=== PATIENT | female | born 1970 | race Caucasian/White ===

== ENCOUNTER 2019-02-06 06:08 | Inpatient (IN) | payer OTHER ==
[2019-02-05 09:28] VITALS: BMI 23.6
[2019-02-06] MEDS ORDERED: DEXAMETHASONE SOD PHOSPHATE/PF 10 MG/ML SDV ONE (07:04)
[2019-02-06] MEDS ORDERED: BUPIVACAINE HCL/PF 0.5% (5 MG/ML) 30 ML VIAL IJ ONE (07:04)
[2019-02-06] MEDS ORDERED: BUPIVACAINE LIPOSOME/PF (EXPAREL) 266 MG/20 ML VIAL ONE (07:11)
[2019-02-06] MEDS ORDERED: MIDAZOLAM HCL 2 MG/2 ML SINGLE DOSE VIAL ONE ×2 (07:22)
[2019-02-06] MEDS ORDERED: PROPOFOL 20 ML ONE (07:31)
[2019-02-06] MEDS ORDERED: KETAMINE HCL 200 MG/20 ML VIAL ONE (07:31)
[2019-02-06] MEDS ORDERED: ROCURONIUM BROMIDE 50 MG/5 ML SYRINGE ONE (07:31)
[2019-02-06] MEDS ORDERED: SUCCINYLCHOLINE CHLORIDE 200 MG/10 ML SYRINGE ONE (07:31)
[2019-02-06] MEDS ORDERED: SODIUM CHLORIDE 0.9% P/F 10 ML VIAL IJ ONE (07:33)
[2019-02-06] MEDS ORDERED: LIDOCAINE HCL/PF 2% SDV 5ML VIAL ONE ×2 (07:33→07:36)
[2019-02-06] MEDS ORDERED: ceFAZolin SODIUM 1 GM VIAL ONE ×2 (07:33→18:28)
[2019-02-06] MEDS ORDERED: KETOROLAC TROMETHAMINE 30 MG/1 ML VIAL ONE (07:33)
[2019-02-06] MEDS ORDERED: DEXAMETHASONE SOD PHOSPHATE 4 MG/1 ML VIAL ONE (07:33)
[2019-02-06] MEDS ORDERED: MAGNESIUM SULF 50% (8.12 MEQ/2 ML-1 GM VIAL) ONE (07:36)
[2019-02-06] MEDS ORDERED: DEXMEDETOMIDINE HCL 200 MCG/2 ML IVPB ONE (07:37)
--- NOTE | 2019-02-06 07:41 | HP ---
History & Physical Update - Physical Physical: No Change - Assessment Assessment: No Change - Plan Plan: No Change (H&P reviwed , no changes , for supracervical abdominal hysterectomy, bilateral salpingectomy)
[2019-02-06] MEDS ORDERED: ceFAZolin 2 GRAM PREMIX BAG IVPB ONE (07:45)
[2019-02-06] MEDS ORDERED: ceFAZolin SODIUM 1 GM VIAL IVPB ONE (08:14)
[2019-02-06] MEDS ORDERED: GLYCOPYRROLATE 0.2 MG/1 ML VIAL ONE (09:02)
[2019-02-06] MEDS ORDERED: NEOSTIGMINE METHYLSULFATE 0.5 MG/ML - 10 ML MDV ONE (09:02)
[2019-02-06] MEDS ORDERED: IBUPROFEN 600 MG TABLET (FP) PO PRN (09:45)
[2019-02-06] MEDS ORDERED: oxyCODONE HCL 5 MG TABLET PO PRN (09:45)
[2019-02-06] MEDS ORDERED: ONDANSETRON 4 MG/2 ML VIAL IVPUSH PRN (09:45)
[2019-02-06] MEDS ORDERED: IBUPROFEN 800 MG/8 ML IJ IVPB PRN (09:45)
[2019-02-06] MEDS ORDERED: ACETAMINOPHEN 325 MG TABLET (FP) PO PRN (10:04)
--- NOTE | 2019-02-06 10:08 | OP ---
Operative Note - Note: Operative Date: 02/06/19 Pre-Operative Diagnosis: pelvic pain, fibroid uterus Operation: supracervical abdominal hysterectomy , bilateral salpingectomy Findings: large uterus, multiple myomas Surgeon: Olu Butts Front Counter Attendant: Vinod Iyer Anesthesia: General Specimens Removed: uterus, both tubes Estimated Blood Loss (mls): 100 Drains & Tubes with Location: squires Blood Volume Replaced (mls): 0 Operative Report Dictated: Yes
[2019-02-06] MEDS: LACTATED RINGERS SOLUTION 1,000 ML IV SCH (11:28)
[2019-02-06] MEDS: oxyCODONE HCL 5 MG TABLET PO PRN (12:16)
[2019-02-06] MEDS: ELECTROLYTE-148 SOLN 1,000 ML IV SCH (15:00)
[2019-02-06] MEDS ORDERED: DEXTROSE 5%-WATER - 50 ML IVPB ONE (18:29)
[2019-02-06] MEDS: CEFAZOLIN 1 GM in DEXTROSE 5%-WATER - 50 ML IVPB SCH (19:00)
[2019-02-06] MEDS: DEXTROSE 5%-LACTATED RINGERS 1,000 ML IV SCH (19:49)
[2019-02-07] MEDS ORDERED: DEXTROSE 5%-WATER - 50 ML IVPB ONE ×2 (01:15→09:50)
[2019-02-07] MEDS ORDERED: ceFAZolin SODIUM 1 GM VIAL ONE ×2 (01:15→09:50)
[2019-02-07] MEDS: CEFAZOLIN 1 GM in DEXTROSE 5%-WATER - 50 ML IVPB SCH ×2 (01:45→09:53)
[2019-02-07] MEDS: oxyCODONE HCL 5 MG TABLET PO PRN (04:32)
[2019-02-07] MEDS ORDERED: ENOXAPARIN NA (PORCINE) 40 MG/0.4 ML DISP.SYRIN SQ SCH (10:00)
[2019-02-07 11:16] LABS: HEMATOCRIT 41.1 % (32.4-45.2); HEMOGLOBIN 13.8 GM/dL (10.7-15.3); MCH 32.5 pg (25.7-33.7); MCHC 33.5 g/dl (32.0-36.0); MEAN PLT VOLUME 8.3 fl (7.5-11.1); PLATELET COUNT 229 K/MM3 (134-434); RBC 4.24 M/mm3 (3.60-5.2); RDW 13.1 % (11.6-15.6); WHITE BLOOD COUNT 7.9 K/mm3 (4.0-10.0)
[2019-02-07 11:52] LABS: BLOOD UREA NITROGEN 13.5 mg/dL (7-18); CALCIUM 8.7 mg/dL (8.5-10.1); CREATININE 0.8 mg/dL (0.55-1.3)
--- NOTE | 2019-02-07 12:03 | OP ---
DATE OF OPERATION: 02/06/2019 PREOPERATIVE DIAGNOSES: Pelvic pain, large fibroid uterus. POSTOPERATIVE DIAGNOSES: Pelvic pain, large fibroid uterus. PROCEDURE: Supracervical abdominal hysterectomy and bilateral salpingectomy. SURGEON: Olu Butts MD FLOOR SANDER: Vinod Iyer MD ESTIMATED BLOOD LOSS: 100 mL. ANESTHESIA: General. DESCRIPTION OF OPERATIVE PROCEDURE: Patient was taken to the operating room. Under adequate general anesthesia, abdomen and perineum were prepped and draped. A Pfannenstiel abdominal skin incision was made. Abdominal wall was cut layer by layer. Anterior peritoneum was exposed and incised. Upon entering the abdominal cavity, upper abdomen was checked, was normal. Bowels were packed away. There was a large fibroid uterus with multiple myomas. Both ovaries appeared to be normal. No cul-de-sac adhesions. Bladder was normal. Then, both cornual regions of the uterus were grasped with 2 straight Linn, and the uterus was delivered. Then, the round ligaments were identified bilaterally, grasped with the bipolar LigaSure cautery, cauterized, and cut. Then, anterior leaf of broad ligament was dissected, and bladder was pushed down. Then, the right tube was grasped with a Brent clamp and along the mesosalpinx with bipolar cautery. The tubes were removed bilaterally. Then, a hole was made into the broad ligament, and utero-ovarian ligament was grasped with a HUMI clamp, cut, and the clamp replaced with first 0 Vicryl ties and then with 0 Vicryl suture bilaterally. Then, the bladder was further pushed down. Uterine artery was identified, clamped with a Shanice clamp, cut, and the clamp replaced with 0 Vicryl suture bilaterally. Paracervical area was clamped with Shanice clamp, cut, and the clamp replaced with 0 Vicryl suture bilaterally. Then, the specimen was removed above the cervix. Cervix was sutured with interrupted suture of 0 Biosyn, and hemostasis was established. Pelvic cavity several times irrigated. No active bleeding was seen. Then, the reperitonealization of the pelvic floor was done with a continuous suture of the 2-0 Vicryl. Again, all the pedicles were checked. No bleeding. All the lap pads, sponge, and instrument count were correct. Peritoneum was closed with 0 Vicryl continuous suture. Muscles were brought together with interrupted suture of 0 Vicryl. Fascia was closed with 0 Vicryl continuous suture, subcutaneous fat with interrupted suture of 0 Vicryl, and the skin was closed with 3-0 Vicryl continuous subcuticular suture. Patient tolerated procedure well, left the OR in good condition. Jael [id number]
[2019-02-07] MEDS: ELECTROLYTE-148 SOLN 1,000 ML IV SCH (14:03)
[2019-02-07] MEDS: LACTATED RINGERS SOLUTION 1,000 ML IV SCH (14:04)
[2019-02-07] MEDS: DEXTROSE 5%-LACTATED RINGERS 1,000 ML IV SCH (14:05)
[2019-02-07 14:37] VITALS: TEMP 98.3
[2019-02-07 14:50] VITALS: BP 104/68; PULSE 78
--- NOTE | 2019-02-07 15:53 | PATH ---
Surgical Pathology Report Patient Name: MECHELLE NORRIS [facility]. Rec. #: [id number] /Age/Gender: 1970 (Age: 48) / F Account: [id number] Location: [facility] MED/SURG Taken: 02/06/2019 Received: 02/06/2019 Reported: 02/07/2019 Physicians: Olu Butts M.D. Specimen(s) Received UTERUS, BILATERAL FALLOPIAN TUBES Clinical History Fibroid uterus Final Diagnosis UTERUS, BILATERAL FALLOPIAN TUBES, ABDOMINAL SUPRACERVICAL HYSTERECTOMY AND BILATERAL SALPINGECTOMY: 677 G UTERUS. LEIOMYOMA(TA) WITH FOCAL DEGENERATIVE CHANGES,SUBSEROSAL, INTRAMURAL, AND SUBMUCOSAL. PROLIFERATIVE ENDOMETRIUM. PORTION OF ENDOCERVIX WITHOUT SIGNIFICANT PATHOLOGIC FINDINGS. BILATERAL FALLOPIAN TUBES WITHOUT SIGNIFICANT PATHOLOGIC FINDINGS (INCLUDING FULL LUMINAL PORTION AND FIMBRIATED END). Electronically Signed Kendra Riggs M.D. Gross Description Received in formalin labeled "uterus and bilateral fallopian tubes," is a 677 g supracervically amputated uterus with bilateral attached fallopian tubes. The specimen measures 12 cm from anterior to posterior, 11 cm from left to right and 10 cm from anterior to posterior. The serosa is jimenez-pink with abundant bulging subserosal nodules. The endometrial cavity measures 5.7 cm in length and 2.3 cm from cornu to cornu. There is a 2.6 x 1.5 cm bulging, polypoid lesion on the anterior endometrium. The remaining endometrium is jimenez-red and averages 0.1 cm in thickness. The myometrium displays abundant intramural nodules, measuring up to 7 cm in greatest dimension. The cut surface of the nodules is jimenez and rubbery with whorled architecture. No areas of hemorrhage or necrosis are identified. The remaining myometrium is jimenez-pink and measures up to 6 cm in thickness. The left fimbriated fallopian tube measures 4 centimeters in length. The outer surface is quinones purple and smooth. Sectioning reveals an unremarkable lumen. The right fimbriated fallopian tube measures 4.5 cm in length. The outer surface is quinones purple and smooth. Sectioning reveals an unremarkable lumen. Traffic Director sections are submitted in 20 cassettes as follows: 1-cervical stump margin of resection; 2-anterior endomyometrium; 5-9-cflgjlth endometrial polypoid lesion sequentially submitted from superior to inferior; 9-08-otmsrdprf endomyometrium; 09-35-zrqqgfwvyi nodules; 34-42-zvsgcqj intramural nodule; 37-84-potytqmhin intramural nodules; 17-left fallopian tube fimbria; 18-cross sections of left fallopian tube; 19-right fallopian tube fimbria; 20-cross sections of right fallopian tube. 02/06/201902/06/2019
== END 2019-02-07 15:13 | disposition home or self-care (01) | DRG 743 ==
LOC: JSAMEDAYSX 06:08 → J8W 11:15
PROVIDERS: ADMIT Obstetrics & Gynecology; ATTEND Obstetrics & Gynecology
PROC: 0UT70ZZ Resection of Bilateral Fallopian Tubes, Open Approach (ICD-10-PCS; 2019-02-06)
PROC: 0UT90ZL Resection of Uterus, Supracervical, Open Approach (ICD-10-PCS; principal; 2019-02-06 08:00)
DX: D25.9 Leiomyoma of uterus, unspecified (principal); R10.2 Pelvic and perineal pain
CPT/HCPCS: 36415; 80048; 84702; 85027; 86850; 86900; 86901; 94760

== ENCOUNTER 2019-05-30 13:30 | Emergency (ER) | payer OTHER ==
[2019-05-30 13:41] VITALS: TEMP 97.7; BMI 23.6
--- NOTE | 2019-05-30 13:42 | PDOC ---
Rapid Medical Evaluation Time Seen by Provider: 05/30/19 13:38 Medical Evaluation: Allergies Allergy/AdvReac Type Severity Reaction Status Date / Time No Known Drug Allergies Allergy Verified 02/05/19 09:36 05/30/19 13:38 Pt c/o: low abd pain and distention x 1 week, moving bowels, no fever, no urinary complaints, no travel administrator on brief exam: rlq/periumbilical tenderness, vss Pt ordered for: urine, labs, iv Pt to proceed to the ED Discharge Disposition - Diagnosis Abdominal pain - Referrals - Patient Instructions - Post Discharge Activity
[2019-05-30] MEDS ORDERED: SODIUM CHLORIDE 0.9% 500 ML INFUS.BAG IV ONE (14:38)
--- NOTE | 2019-05-30 14:39 | PDOC ---
History of Present Illness - General Chief Complaint: Pain Stated Complaint: SENT BY DOC Time Seen by Provider: 05/30/19 13:38 History Source: Patient Exam Limitations: No Limitations - History of Present Illness Initial Comments: Carolyn Parra is a 49 yo F w a pmh of hysterectomy and salpingectomy (Still has ovaries), Uveitis, cataracts presents to the [facility] er sent in by Dr. Montgomery for an abdominal CT scan because she has been experiencing increasing lower abdominal girth and pain over the course of the past 2 weeks. She reports that 2 weeks prior she had no pain, but her abdomen has steadily been expanding in size and she has occasional RLQ abdominal pain. She states now when she runs on the treadmill her lower abdomen experiences a significant amount of pain. Patient states she has been having night sweats at night. Also endorses mild watery diarrhea without blood this morning. - Last bowel movement this morning, was watery and described as mild diarrhea. LMP: August 2018. States she is currently experiencing tiffany-menopausal symptoms. Denies fevers, chills, weight loss, nausea, vomiting, anorexia, loss of appetite. Denies vaginal discharge, denies bloody discharge, denies dysuria, frequency, urgency. PCP: Dr. Montgomery Opthalmologist: Dr. Salmeron in [place] PSH: bilateral salpingectomy, hysterectomy (Patient still has ovaries), catarct surgery Allergies: NKA, NKDA Social Hx: Denies smoking, drinking, or other substance abuse Past History - Past Medical History Allergies/Adverse Reactions: Allergies Allergy/AdvReac Type Severity Reaction Status Date / Time No Known Drug Allergies Allergy Verified 05/30/19 13:41 Home Medications: Ambulatory Orders Mycophenolate Mofetil [Cellcept] 500 mg PO BID 02/05/19 acetaZOLAMIDE [Diamox -] 250 mg PO BID 02/05/19 Ibuprofen [Motrin -] 600 mg PO QID #28 tablet 02/06/19 Anemia: No Asthma: No Cancer: No Cardiac Disorders: No CVA: No COPD: No CHF: No Dementia: No Diabetes: No GI Disorders: No Disorders: No HTN: No Hypercholesterolemia: No Liver Disease: No Seizures: No Thyroid Disease: No - Psycho Social/Smoking Cessation Hx Smoking History: Never smoked Have you smoked in the past 12 months: No Information on smoking cessation initiated: No Hx Alcohol Use: No Drug/Substance Use Hx: No Substance Use Type: Alcohol Hx Substance Use Treatment: No Review of Systems - Review of Systems Able to Perform ROS?: Yes Comments:: CONSTITUTIONAL: Present: Night sweats. Absent: fever, no chills, no fatigue EYES: Absent: visual changes ENT: Absent: ear pain, no sore throat CARDIOVASCULAR: Absent: chest pain, no palpitations RESPIRATORY: Absent: cough, no SOB GI: Present: Abdominal pain, diarrhea Absent: no nausea, no vomiting, no constipation GENITOURINARY: Absent: dysuria, no frequency, no hematuria MUSKULOSKELETAL: Absent: back pain, no arthralgia, no myalgia SKIN: Absent: rash NEURO: Absent: headache *Physical Exam - Vital Signs Last Vital Signs Temp Pulse Resp BP Pulse Ox 97.7 F 69 18 131/89 98 05/30/19 13:39 05/30/19 13:39 05/30/19 13:39 05/30/19 13:39 05/30/19 13:39 - Physical Exam GENERAL: Well-appearing, well-nourished. No apparent distress. HEENT: Normocephalic, atraumatic. PERRL, EOM intact. CARDIOVASCULAR: Normal S1, S2. Regular rate and rhythm. PULMONARY: No evidence of respiratory distress. Lungs clear to auscultation bilaterally. No wheezing, rales or rhonchi. ABDOMEN: Normal bowel sounds. Abdomen is soft, non-distended, non-tender. No flank tenderness. There is overall generalized abdominal girth. No hard or tender massess appreciated. EXTREMITIES: Normal ROM in all four extremities. No gross deformities. SKIN: Warm, dry. No rash NEUROLOGICAL: No focal neurological deficits. ED Treatment Course - LABORATORY CBC & Chemistry Diagram: 05/30/19 14:55 05/30/19 14:55 Medical Decision Making - Medical Decision Making Carolyn Parra is a 49 yo F w a pmh of hysterectomy and salpingectomy (Still has ovaries), Uveitis, cataracts presents to the [facility] er sent in by Dr. Montgomery for an abdominal CT scan because she has been experiencing increasing lower abdominal girth and pain over the course of the past 2 weeks. She reports that 2 weeks prior she had no pain, but her abdomen has steadily been expanding in size and she has occasional RLQ abdominal pain. She states now when she runs on the treadmill her lower abdomen experiences a significant amount of pain. Patient states she has been having night sweats at night. Also endorses mild watery diarrhea without blood this morning. - Last bowel movement this morning, was watery and described as mild diarrhea. LMP: August 2018. States she is currently experiencing tiffany-menopausal symptoms. Denies fevers, chills, weight loss, nausea, vomiting, anorexia, loss of appetite. Denies vaginal discharge, denies bloody discharge, denies dysuria, frequency, urgency. Vital Signs Temp Pulse Resp BP Pulse Ox 97.7 F 69 18 131/89 98 05/30/19 13:39 05/30/19 13:39 05/30/19 13:39 05/30/19 13:39 05/30/19 13:39 DDx IBNLT: UTI, pylo, appendcitis, ovarian cancer, electrolyte/metabolic disturbance, anemia Plan: Labs, urine, POCUS, CTAP, re-assess POCUS: No intra-abdominal Free fluid. Normal peristalsing bowel, no bowel segments larger than 3 cm. Labs: Cbc normal. Coags unremarkable. CMP unremarkable. Urine: Clean without signs of infection CTAP: Unremarkable Re-assessment: Patient persistently asymptomatic despite 5 hours of ED observation Disposition: Home with PCP fu - CT results printed and given to patient Discharge - Discharge Information Problems reviewed: Yes Clinical Impression/Diagnosis: Abdominal pain Qualifiers: Abdominal location: lower abdomen, unspecified Qualified Code(s): R10.30 - Lower abdominal pain, unspecified Condition: Stable Disposition: HOME - Admission No - Follow up/Referral Referrals: Marcelino Montgomery RES [Primary Care Provider] - - Patient Discharge Instructions Patient Printed Discharge Instructions: Acute Abdominal Pain Additional Instructions: You came into the ER with abdominal discomfort. We looked at your blood, urine, did a cat scan, and a bedisde ultrasound and found no abnormal results. Please follow up about this with your primary doctor in the next 3 to 5 days. Come back to the ER immediately with any new or worsening concerns. Thank you for coming to the [facility] ER. We hope you feel better soon! Print Language: CITIZEN OF [place] - Post Discharge Activity
--- NOTE | 2019-05-30 14:51 | PDOC ---
Attending Attestation - Resident Resident Name: Arian Ricks - ED Attending Attestation I have performed the following: I have examined & evaluated the patient, The case was reviewed & discussed with the resident, I agree w/resident's findings & plan, Exceptions are as noted - HPI HPI: 05/30/19 18:50 49y M hx of fibroids sp hysterectomy/salpingetctomy, uveitis, presents with lower abdominal pain for the past several weeks. Patient states that she has been having intermittent low abdominal pain that seems to worsen intermittently sometimes with sitting up. The patient does endorse that her lower abdomen seems a little more swollen than usual . the patient denies any fever, chills, nausea, vomiting, chest pain, shortness of breath, back pain, weight loss, change in her appetite. There is no change to her pain with food intake. Social history patient denies smoking, recreational drug use surgical hx: hysterectomy/salpingetctomy General: no acute distress, well appearing Abd: soft mild lower abd tenderness R>L, no rebound/guarding, no cva tenderness - Physicial Exam PE: 05/30/19 18:54 ee above - Medical Decision Making 05/30/19 18:54 pots labs reviewd and unremarkable UA negative CT without acute pathology pt feeing better pain may be msk in nature - pt ntoes the pain worsens with sitting up and b/l hip flexion will recommend tylenol/motrin, rest PMD fu return precautions were dsicussed Heart Score/ECG Review - ECG Impressions Comment:: 05/30/19 18:55 Twelve-lead EKG was performed and reviewed by me. There is normal sinus rhythm with a normal rate. Rate of 70 The axis is normal. The intervals are normal. There is normal R wave progression There are no ST or T wave abnormalities. Impression: Normal twelve-lead EKG Discharge - Discharge Information Clinical Impression/Diagnosis: Abdominal pain Qualifiers: Abdominal location: lower abdomen, unspecified Qualified Code(s): R10.30 - Lower abdominal pain, unspecified Condition: Stable Disposition: HOME - Follow up/Referral Referrals: Marcelino Montgomery, G[place]O [Primary Care Provider] - - Patient Discharge Instructions Patient Printed Discharge Instructions: Acute Abdominal Pain Additional Instructions: You came into the ER with abdominal discomfort. We looked at your blood, urine, did a cat scan, and a bedisde ultrasound and found no abnormal results. Please follow up about this with your primary doctor in the next 3 to 5 days. Come back to the ER immediately with any new or worsening concerns. Thank you for coming to the [facility] ER. We hope you feel better soon! Print Language: DOMINICAN - Post Discharge Activity
[2019-05-30 15:18] LABS: BASO % 0.7 % (0-2.0); EOS % 1.2 % (0-4.5); HEMATOCRIT 44.9 % (32.4-45.2); HEMOGLOBIN 14.8 GM/dL (10.7-15.3); LYMPH % 39.1 % (8-40); MCH 32.2 pg (25.7-33.7); MEAN CELL VOLUME 97.6 fl (80-96); MEAN PLT VOLUME 8.5 fl (7.5-11.1); MONO % 7.8 % (3.8-10.2); NEUT % 51.2 % (42.8-82.8); PLATELET COUNT 293 K/MM3 (134-434); RDW 13.4 % (11.6-15.6); WHITE BLOOD COUNT 5.5 K/mm3 (4.0-10.0)
[2019-05-30 15:22] LABS: URINE APPEARANCE Clear; URINE BILIRUBIN Negative (NEGATIVE); URINE COLOR Yellow; URINE GLUCOSE (UA) Negative (NEGATIVE); URINE KETONE Negative (NEGATIVE); URINE LEUK ESTERASE Negative (NEGATIVE); URINE NITRITE Negative (NEGATIVE); URINE PROTEIN Negative (NEGATIVE); URINE UROBILINOGEN 0.2 mg/dL (0.2-1.0)
[2019-05-30 15:24] LABS: INR 0.82 (0.83-1.09); PROTHROMBIN TIME (PATIENT) 9.6 SEC (9.7-13.0)
[2019-05-30 15:27] LABS: ACTIVATED PTT 36.5 SECONDS (25.2-36.5)
[2019-05-30 15:44] LABS: ALBUMIN 3.9 g/dl (3.4-5.0); BILIRUBIN,TOTAL 0.2 mg/dL (0.2-1); BLOOD UREA NITROGEN 13.1 mg/dL (7-18); CALCIUM 8.9 mg/dL (8.5-10.1); CREATININE 0.8 mg/dL (0.55-1.3); MAGNESIUM 2.1 mg/dL (1.8-2.4); PHOSPHOROUS 3.4 mg/dL (2.5-4.9); POTASSIUM 3.6 mmol/L (3.5-5.1); TOT PROT 7.4 g/dl (6.4-8.2)
[2019-05-30 19:09] VITALS: BP 117/78; PULSE 72
--- NOTE | 2019-05-31 10:50 | EKG ---
Test Reason : Blood Pressure : / mmHG Vent. Rate : 070 BPM Atrial Rate : 070 BPM P-R Int : 158 ms QRS Dur : 084 ms QT Int : 384 ms P-R-T Axes : 029 013 027 degrees QTc Int : 414 ms NORMAL SINUS RHYTHM POOR R WAVE PROGRESSION NO PREVIOUS ECGS AVAILABLE Confirmed by CATA ARREDONDO MD ([id number]) on 05/31/2019 10:49:31 AM Referred By: Confirmed By:CATA ARREDONDO MD
== END 2019-05-30 19:00 | disposition home or self-care (01) ==
LOC: JER 13:30
DX: R10.30 Lower abdominal pain, unspecified (principal); Z90.710 Acquired absence of both cervix and uterus; Z90.79 Acquired absence of other genital organ(s); Z86.69 Personal history of other diseases of the nervous system and sense organs
CPT/HCPCS: 36415; 74177-TC; 80053; 81003; 82550; 83605; 83690; 83735; 84100; 84484; 85025; 85610; 85730; 86850; 86900; 86901; 87086; 93005; 93010; 99285-25; Q9967